=== PATIENT | female | born 1940 | race Caucasian/White ===

== ENCOUNTER → 2017-02-28 | Outpatient (CLI) | payer BC ==
--- NOTE | 2017-03-01 12:52 | MAMMOGRAPHY REPORT ---
BILATERAL DIGITAL SCREENING MAMMOGRAM WITH CAD: 02/28/2017 CLINICAL HISTORY: Routine screening. Patient has no complaints. TECHNIQUE: Current study was also evaluated with a Computer Aided Detection (CAD) system. Bilatera l CC and MLO views were obtained. COMPARISON: Comparison is made to exams dated: 02/27/2016 mammogram, 02/22/2015 mammogram - [facility], 09/18/2010 mammogram, 08/22/2010 mammogram - [facility], and 07/12/2006 mammogram. BREAST COMPOSITION: There are scattered areas of fibroglandular density in both breasts. FINDINGS: No suspicious masses, calcifications, or areas of architectural distortion are noted in e ither breast. There has been no significant interval change compared to prior exams. IMPRESSION: ACR BI-RADS CATEGORY 1: NEGATIVE There is no mammographic evidence of malignancy. A 1 year screening mammogram is recommended. The p atient will receive written notification of the results. Approximately 10% of breast cancers are not detected with mammography. A negative mammographic repor t should not delay biopsy if a clinically suggestive mass is present. Frances Gomez M.D. ah/:02/28/2017 13:44:31 Management Lecturer: Adela GALLEGOS(R)(M), [facility] letter sent: Normal 1/2 BI-RADS Code: ACR BI-RADS Category 1: Negative
== END | disposition home or self-care (01) ==
LOC: C.MAMM 13:13
PROVIDERS: ATTEND Family Medicine
DX: Z12.31 Encounter for screening mammogram for malignant neoplasm of breast (principal)

== ENCOUNTER → 2017-04-19 | Outpatient (CLI) | payer BC | END | disposition home or self-care (01) | LOC: C.LABMFLN 14:33 | PROVIDERS: ATTEND Physician Assistant | DX: J02.9 Acute pharyngitis, unspecified (principal) ==

== ENCOUNTER → 2017-05-06 | Outpatient (CLI) | payer BC ==
[2017-05-06 13:24] LABS: BASO % 0.9 %; BASO ABS # 0.04 K/uL (0-0.2); COMPLETE YES; EOS % 2.8 %; HEMATOCRIT 41.4 % (37-47); LYMPH % 22.5 %; LYMPH ABS # 1.03 K/uL (1.2-3.4); MEAN CELL VOLUME 94.5 fL (80-100); MEAN CORPUSCULAR HEMOGLOBIN 31.1 pg (25-34); MEAN CORPUSCULAR HGB CONC 32.9 g/dl (32-36); MONO % 10.5 %; NEUT % 63.3 %; PLATELET COUNT 272 K/uL (130-400); RED BLOOD COUNT 4.38 M/uL (4.2-5.4); WHITE BLOOD COUNT 4.58 K/uL (4.8-10.8)
== END | disposition home or self-care (01) ==
LOC: C.LABMFLN 08:16
PROVIDERS: ATTEND Family Medicine
DX: E78.5 Hyperlipidemia, unspecified (principal); F41.9 Anxiety disorder, unspecified

== ENCOUNTER → 2017-11-07 | Outpatient (CLI) | payer BC | END | disposition home or self-care (01) | LOC: C.LABMFLN 08:20 | PROVIDERS: ATTEND Family Medicine | DX: E78.5 Hyperlipidemia, unspecified (principal) ==

== ENCOUNTER → 2018-01-23 | Outpatient (CLI) | payer BC ==
[~2018-01-23] MED LIST: ASPI-435 PO; BSP/5 PO; LORA-741 PO; ROSU5TAB PO
== END | disposition home or self-care (01) ==
LOC: C.LABMFLN 07:03
PROVIDERS: ATTEND Family Medicine
DX: E78.5 Hyperlipidemia, unspecified (principal)

== ENCOUNTER 2018-01-26 12:34 | Emergency (ER) | payer BC ==
[2018-01-26 12:42] VITALS: Ht 167.6 cm
--- NOTE | 2018-01-26 12:51 | EMERGENCY ROOM VISIT NOTE ---
History Report prepared by Daryn: Simba Multani Under the Supervision of: Dr. Pierre Garcia M.D. First contact with patient: 12:49 Chief Complaint: SYNCOPE (NEAR SYNCOPE) Stated Complaint: NEAR SYNCOPE History of Present Illness The patient is a 77 year old female who presents to the Emergency Room with complaints of persistent dizziness and severe pressure in her temples beginning several weeks ago. The patient notes that she is prone to panic attacks and is claustrophobic. She feels that her present symptoms are due to her anxiety. The patient reports seeing her faint one week ago and thinking that he was dying. She notes that she has felt disturbed, anxious, and as if her heart is pounding ever since this episode. The patient notes taking lorazepam for her anxiety. She states that she took lorazepam this morning, which gave her partial relief of her symptoms for a short period of time. The patient reports that she was diagnosed with afib. She notes taking a baby aspirin every day. The patient denies any chest pain, shortness of breath, abdominal pain, and back pain. Source of History: patient Onset: several weeks ago Position: head Symptom Intensity: severe Quality: other (dizziness) Timing: other (persistant ) Modifying Factors (Worsening): other Modifying Factors (Relieving): other (Lorazepam ) Associated Symptoms: No chest pain, No SOB, No abdominal pain, No back pain Note: Associated Symptoms: Anxiety, Palpitations, Review of Systems See HPI for pertinent positives & negatives. A total of 10 systems reviewed and were otherwise negative. Family History Patient reports no known family medical history. Social History Smoking Status: Never Smoker Drug Use: none Marital Status: Housing Status: lives with significant other Occupation Status: retired Current/Historical Medications Scheduled Aspirin (Aspirin 81), 81 MG PO HS Buspirone HCl (Buspirone HCl), 2.5 MG PO BID Rosuvastatin Calcium (Crestor), 5 MG PO HS Scheduled PRN Lorazepam (Ativan), 0.5 MG PO BID PRN for Anxiety/Agitation Allergies Coded Allergies: No Known Allergies (Unverified , 01/26/18) Physical Exam Vital Signs Date Time Temp Pulse Resp B/P (MAP) Pulse Ox O2 Delivery O2 Flow Rate FiO2 01/26/18 13:20 80 01/26/18 13:20 75 18 127/64 97 01/26/18 12:42 36.5 100 18 139/66 96 Room Air Physical Exam General: Mildly anxious older female HEENT: Normal cephalic atraumatic. Pupils are equal round and reactive to light. Extraocular movements are intact. Oropharynx is pink with moist mucous membranes. No swelling of the mouth lips or tongue. Neck: Supple with a midline trachea. No meningeal signs or stiffness, no JVD or bruits. No Stridor. Chest: Clear to auscultation bilaterally. No wheezes or rhonchi. No increased work of breathing. Heart: regular rate and rhythm. Abdomen: Soft nontender, nondistended without rebound guarding or rigidity. Extremities: No cyanosis clubbing or edema. No calf tenderness or assymetry Spine/Back. Non tender to palpation. No CVA tenderness Skin: Good turgor without rashes. Neurologic exam: Cranial nerves two through 12 are intact. Motor and sensation are intact and symmetrical throughout. Medical Decision & Procedures ER Provider Diagnostic Interpretation: Radiology results as stated below per my review and radiologist interpretation: HEAD WITHOUT CONTRAST (CT) CT DOSE: 569.73 mGy.cm HISTORY: Mental status change DIZZY TECHNIQUE: Multiaxial CT images of the head were performed without the use of intravenous contrast. A dose lowering technique was utilized adhering to the principles of ALARA. Comparison: None. Findings: The paranasal sinuses and mastoid air cells are clear. The calvarium and skull base are intact. The ventricles and sulci are within normal limits. There is no mass, hematoma, midline shift, or acute infarct. Impression: No acute intracranial abnormality. The above report was generated using voice recognition software. It may contain grammatical, syntax or spelling errors. Electronically signed by: Reji Jones M.D. 01/26/2018 2:05 PM Dictated Date/Time: 01/26/2018 2:04 PM CHEST ONE VIEW PORTABLE CLINICAL HISTORY: CHEST PAIN dyspnea COMPARISON STUDY: No previous studies for comparison. FINDINGS: The bones soft tissues and hemidiaphragms are normal. The cardiomediastinal silhouette is normal. The lungs are clear. The pulmonary vasculature is normal. IMPRESSION: Negative chest. The above report was generated using voice recognition software. It may contain grammatical, syntax or spelling errors. Electronically signed by: Reji Jones M.D. 01/26/2018 1:39 PM Dictated Date/Time: 01/26/2018 1:39 PM Laboratory Results 01/26/18 13:20 Red Blood Count 4.10, Mean Corpuscular Volume 94.4, Mean Corpuscular Hemoglobin 30.7, Mean Corpuscular Hemoglobin Concent 32.6, Mean Platelet Volume 9.7, Neutrophils (%) (Auto) 72.4, Lymphocytes (%) (Auto) 18.9, Monocytes (%) (Auto) 7.0, Eosinophils (%) (Auto) 1.2, Basophils (%) (Auto) 0.3, Neutrophils # (Auto) 4.36, Lymphocytes # (Auto) 1.14, Monocytes # (Auto) 0.42, Eosinophils # (Auto) 0.07, Basophils # (Auto) 0.02 01/26/18 13:20 Test 01/26/18 13:20 01/26/18 13:29 White Blood Count 6.02 K/uL (4.8-10.8) Red Blood Count 4.10 M/uL (4.2-5.4) Hemoglobin 12.6 g/dL (12.0-16.0) Hematocrit 38.7 % (37-47) Mean Corpuscular Volume 94.4 fL (80-100) Mean Corpuscular Hemoglobin 30.7 pg (25-34) Mean Corpuscular Hemoglobin Concent 32.6 g/dl (32-36) Platelet Count 272 K/uL (130-400) Mean Platelet Volume 9.7 fL (7.4-10.4) Neutrophils (%) (Auto) 72.4 % Lymphocytes (%) (Auto) 18.9 % Monocytes (%) (Auto) 7.0 % Eosinophils (%) (Auto) 1.2 % Basophils (%) (Auto) 0.3 % Neutrophils # (Auto) 4.36 K/uL (1.4-6.5) Lymphocytes # (Auto) 1.14 K/uL (1.2-3.4) Monocytes # (Auto) 0.42 K/uL (0.11-0.59) Eosinophils # (Auto) 0.07 K/uL (0-0.5) Basophils # (Auto) 0.02 K/uL (0-0.2) RDW Standard Deviation 47.1 fL (36.4-46.3) RDW Coefficient of Variation 13.7 % (11.5-14.5) Immature Granulocyte % (Auto) 0.2 % Immature Granulocyte # (Auto) 0.01 K/uL (0.00-0.02) Prothrombin Time 10.8 SECONDS (9.0-12.0) Prothromb Time International Ratio 1.0 (0.9-1.1) Activated Partial Thromboplast Time 22.4 SECONDS (21.0-31.0) Partial Thromboplastin Ratio 0.9 Anion Gap 5.0 mmol/L (3-11) Estimated GFR () 63.4 Estimated GFR (Non- 54.7 BUN/Creatinine Ratio 13.9 (10-20) Calcium Level 9.7 mg/dl (8.5-10.1) Total Bilirubin 0.5 mg/dl (0.2-1) Direct Bilirubin mg/dl (0-0.2) Aspartate Amino Transf (AST/SGOT) U/L (15-37) Alanine Aminotransferase (ALT/SGPT) 22 U/L (12-78) Alkaline Phosphatase 63 U/L (45-117) Total Creatine Kinase U/L (26-192) Creatine Kinase MB 2.3 ng/ml (0.5-3.6) Creatine Kinase MB Ratio (0-3.0) Total Protein 7.0 gm/dl (6.4-8.2) Albumin 3.7 gm/dl (3.4-5.0) Lipase 215 U/L (73-393) Thyroid Stimulating Hormone (TSH) 2.260 uIu/ml (0.300-4.500) Bedside Troponin I < 0.030 ng/ml (0-0.045) Laboratory studies as stated above per my review. Medications Administered Medications (Trade) Dose Ordered Sig/Zandra Route Start Time Stop Time Status Last Admin Dose Admin Lorazepam (Ativan Tab) 0.5 mg NOW STAT PO 01/26/18 13:06 01/26/18 13:09 DC 01/26/18 13:49 0.5 MG Sodium Chloride 500 ml @ 999 mls/hr Q31M STAT IV 01/26/18 13:06 01/26/18 13:36 DC 01/26/18 13:25 999 MLS/HR ECG Per My Interpretation Indication: syncope Rate (beats per minute): 73 Rhythm: normal sinus Findings: no acute ischemic change, no ectopy, other (normal intervals) Comparison ECG Date: no prior available ED Course 1250: Past medical records reviewed. The patient was evaluated in room C7, and a complete history and physical examination were performed. 1306: Ordered Sodium Chloride 500 ml @ 999 mls/hr IV and Lorazepam 0.5mg PO. 1440: Upon reevaluation, the patient is resting comfortably. I discussed the results and treatment plan with him. He verbalized agreement of the treatment plan. The patient was discharged home. Medical Decision Differentials include, but are not limited to; Anxiety, arrhythmia, neurologic process, electrolyte or metabolic abnormality, infection. Medication Reconcilliation Current Medication List: was personally reviewed by me Blood Pressure Screening Patient's blood pressure: Normal blood pressure Impression Primary Impression: Anxiety Additional Impression: Dizziness Scribe Attestation The scribe's documentation has been prepared under my direction and personally reviewed by me in its entirety. I confirm that the note above accurately reflects all work, treatment, procedures, and medical decision making performed by me. Departure Information Dispostion Home / Self-Care Referrals Akosua Momin M.D. (PCP) Forms HOME CARE DOCUMENTATION FORM, IMPORTANT VISIT INFORMATION Patient Instructions My [facility] Additional Instructions Rest. May continue use your Ativan as directed if needed for anxiety. Try to use it sparingly. Ativan/Lorazepam may make you drowsy do not take before drinking, driving, working Return if: Worsening of symptoms, any new problems or concerns Follow-up with your doctor this week for recheck Problem Qualifiers
[2018-01-26] MEDS ORDERED: LORAZEPAM 0.5 MG TAB PO STA (13:06)
[2018-01-26] MEDS ORDERED: SODIUM CHLORIDE 0.9% 500ML 500 ML IV STA (13:06)
[2018-01-26 13:27] LABS: BASO % 0.3 %; BASO ABS # 0.02 K/uL (0-0.2); EOS % 1.2 %; EOS ABS # 0.07 K/uL (0-0.5); HEMATOCRIT 38.7 % (37-47); HEMOGLOBIN 12.6 g/dL (12.0-16.0); IG# 0.01 K/uL (0.00-0.02); LYMPH % 18.9 %; LYMPH ABS # 1.14 K/uL (1.2-3.4); MEAN CELL VOLUME 94.4 fL (80-100); MEAN CORPUSCULAR HEMOGLOBIN 30.7 pg (25-34); MEAN CORPUSCULAR HGB CONC 32.6 g/dl (32-36); MEAN PLATELET VOLUME 9.7 fL (7.4-10.4); MONO ABS # 0.42 K/uL (0.11-0.59); NEUT % 72.4 %; NEUT ABS # 4.36 K/uL (1.4-6.5); PLATELET COUNT 272 K/uL (130-400); RED CELL DISTRIBUTION WIDTH CV 13.7 % (11.5-14.5); RED CELL DISTRIBUTION WIDTH SD 47.1 fL (36.4-46.3); WHITE BLOOD COUNT 6.02 K/uL (4.8-10.8)
--- NOTE | 2018-01-26 13:41 | DIAGNOSTIC IMAGING REPORT ---
CHEST ONE VIEW PORTABLE CLINICAL HISTORY: CHEST PAIN dyspnea COMPARISON STUDY: No previous studies for comparison. FINDINGS: The bones soft tissues and hemidiaphragms are normal. The cardiomediastinal silhouette is normal. The lungs are clear. The pulmonary vasculature is normal. IMPRESSION: Negative chest. The above report was generated using voice recognition software. It may contain grammatical, syntax or spelling errors. Electronically signed by: Reji Jones M.D. 01/26/2018 1:39 PM Dictated Date/Time: 01/26/2018 1:39 PM
[2018-01-26 13:47] LABS: PTT PATIENT 22.4 SECONDS (21.0-31.0)
[2018-01-26] MEDS ORDERED: BSP/5 PO (13:58)
[2018-01-26] MEDS ORDERED: ROSU5TAB PO (13:58)
[2018-01-26] MEDS ORDERED: ASPI-435 PO (13:58)
[2018-01-26] MEDS ORDERED: LORA-741 PO (13:58)
[2018-01-26 14:02] LABS: ALBUMIN 3.7 gm/dl (3.4-5.0); ALT/SGPT 22 U/L (12-78); BLOOD UREA NITROGEN 14 mg/dl (7-18); CALCIUM 9.7 mg/dl (8.5-10.1); CARBON DIOXIDE 29 mmol/L (21-32); GLUCOSE 126 mg/dl (70-99); LIPASE 215 U/L (73-393); SODIUM 141 mmol/L (136-145)
[2018-01-26 14:05] LABS: ALKALINE PHOSPHATASE 63 U/L (45-117); CKMB 2.3 ng/ml (0.5-3.6)
--- NOTE | 2018-01-26 14:06 | DIAGNOSTIC IMAGING REPORT ---
HEAD WITHOUT CONTRAST (CT) CT DOSE: 569.73 mGy.cm HISTORY: Mental status change DIZZY TECHNIQUE: Multiaxial CT images of the head were performed without the use of intravenous contrast. A dose lowering technique was utilized adhering to the principles of ALARA. Comparison: None. Findings: The paranasal sinuses and mastoid air cells are clear. The calvarium and skull base are intact. The ventricles and sulci are within normal limits. There is no mass, hematoma, midline shift, or acute infarct. Impression: No acute intracranial abnormality. The above report was generated using voice recognition software. It may contain grammatical, syntax or spelling errors. Electronically signed by: Reji Jones M.D. 01/26/2018 2:05 PM Dictated Date/Time: 01/26/2018 2:04 PM
[2018-01-26 15:02] VITALS: BP 132/68; PULSE 71; TEMP 36.5; O2SAT 97
== END 2018-01-26 15:03 | disposition home or self-care (01) ==
LOC: C.EDB 12:35 → C.EDC 15:03
DX: F41.9 Anxiety disorder, unspecified (principal); R42 Dizziness and giddiness; I48.91 Unspecified atrial fibrillation; Z79.82 Long term (current) use of aspirin; Z79.899 Other long term (current) drug therapy